=== PATIENT | male | born 1965 | race American Indian/Alaskan Native ===

== ENCOUNTER 2016-06-15 10:37 | Emergency (ER) | payer BC ==
[2016-06-15 11:45] VITALS: RESP 20
[2016-06-15 12:19] LABS: BASO # 0.1 K/uL (0.0-0.2); BASO % 0.6 % (0.0-2.0); EOS # 0.1 K/uL (0.0-0.7); EOS % 0.4 % (0.0-4.0); HEMATOCRIT 48.8 % (35.0-51.0); LYMPH # 1.4 K/uL (1.0-4.3); LYMPH % 9.7 % (20.0-40.0); MEAN CELL VOLUME 94.8 fL (80.0-94.0); MEAN CORPUSCULAR HEMOGLOBIN 32.2 pg (27.0-31.0); MEAN PLATELET VOLUME 8.4 fL (7.2-11.7); MONO # 1.9 K/uL (0.0-0.8); MONO % 13.6 % (0.0-10.0); PLATELET COUNT 274 K/uL (130-400); RED CELL DISTRIBUTION WIDTH 13.4 % (11.5-14.5); WHITE BLOOD COUNT 14.1 K/uL (4.8-10.8)
[2016-06-15 12:28] LABS: CHLORIDE 95 mmol/L (98-107); POTASSIUM 3.8 mmol/L (3.6-5.2); SODIUM 137 mmol/L (132-148)
[2016-06-15 12:30] LABS: GFR AFRICAN-AMERICAN > 60
[2016-06-15 12:31] LABS: ALB/GLOB RATIO 1.1 (1.0-2.1); ALKALINE PHOSPHATASE 57 U/L (38-126); ALT/SGPT 25 U/L (21-72); AST/SGOT 33 U/L (17-59); BILIRUBIN,TOTAL 3.3 mg/dL (0.2-1.3); BLOOD UREA NITROGEN 19 mg/dL (9-20); CALCIUM 9.5 mg/dl (8.6-10.4); CARBON DIOXIDE 31 mmol/L (22-30); GLUCOSE,RANDOM 109 mg/dL (75-110); TOTAL PROTEIN 8.3 g/dL (6.3-8.3); URIC ACID 10.5 mg/dL (3.5-8.5)
[2016-06-15 12:40] LABS: EOSINOPHIL 1 % (0-4); NEUTROPHIL 77 % (50-75); TOTAL CELLS COUNTED 100
[2016-06-15 13:07] VITALS: O2SAT 98
[2016-06-15] MEDS ORDERED: Morphine 4 MG/ML VIAL ONE (13:29)
--- NOTE | 2016-06-15 14:10 | C.PDOC ---
History Of Present Illness 50 y/o male presents to the ED with complaints of right foot pain, swelling, redness x2 days. Pt has hx gout, states he is not currently on any medications for it. Pt denies falls/injuries, fever, sensory changes. Patient has PMHx of HTN, but has no PMD and does not take any BP meds. Time Seen by Provider: 06/15/16 11:38 Chief Complaint (Nursing): Lower Extremity Problem/Injury History Per: Patient History/Exam Limitations: no limitations Onset/Duration Of Symptoms: Days Current Symptoms Are (Timing): Still Present Severity: Moderate Recent travel outside of the [place]: No Past Medical History Reviewed: Historical Data, Nursing Documentation, Vital Signs Vital Signs: Last Vital Signs Temp 99.1 F 06/15/16 15:00 Pulse 111 H 06/15/16 15:00 Resp 20 06/15/16 15:00 BP 181/112 H 06/15/16 15:00 Pulse Ox 98 06/15/16 15:00 - Medical History PMH: HTN Family History: States: No Known Family Hx - Social History Hx Tobacco Use: No Hx Alcohol Use: Yes Hx Substance Use: No Review Of Systems Except As Marked, All Systems Reviewed And Found Negative. Constitutional: Negative for: Fever, Chills Cardiovascular: Negative for: Chest Pain, Palpitations Respiratory: Negative for: Cough, Shortness of Breath Gastrointestinal: Negative for: Nausea, Vomiting, Abdominal Pain Musculoskeletal: Positive for: Other (right foot pain, swelling, redness) Neurological: Negative for: Weakness, Numbness, Altered Mental Status, Headache , Dizziness Physical Exam - Physical Exam Appears: Non-toxic, In Acute Distress (moderate pain) Skin: Warm, Dry, No Rash Head: Atraumatic, Normacephalic Eye(s): bilateral: Normal Inspection Oral Mucosa: Moist Cardiovascular: Rhythm Regular (tachycardic), No Murmur Respiratory: Normal Breath Sounds, No Rales, No Rhonchi, No Wheezing Gastrointestinal/Abdominal: Normal Exam, Bowel Sounds, Soft, No Tenderness, No Guarding, No Rebound Extremity: Normal ROM, No Calf Tenderness, Capillary Refill (< 2 sec all digits ), No Deformity, Swelling (Right foot with mild swelling, erythema with warmth at 1st MTP. No rashes, no fluctuance/induration) Pulses: Left Dorsalis Pedis: Normal, Right Dorsalis Pedis: Normal Neurological/Psych: Oriented x3, Normal Sensation ED Course And Treatment - Laboratory Results Result Diagrams: 06/15/16 12:11 06/15/16 12:11 O2 Sat by Pulse Oximetry: 98 (on room air) Pulse Ox Interpretation: Normal Progress Note: Plan: Blood work ordred and reviewed. Partient given IV toradol , PO colchicine and PO Norvasc. 15:00- On reassessment, patient states he is feeling much better. Vitals have improved significantly. Patient would like to be discharged home - explained to him that he needs to follow up in the medical clinic/internal medicine for further evaluation of his BP. Follow up info given, and patient also given Rxs for Colchicine, indomethacin and Norvasc. He understands he should return to ED immediately if symptoms worsen. Reevaluation Time: 13:15 Reassessment Condition: Improved (Patient reassessed, is still having significant pain - IV morphine ordered.) Disposition Counseled Patient/Family Regarding: Studies Performed, Diagnosis, Need For Followup, Rx Given - Disposition Referrals: Jade Montgomery MD [Staff Provider] - Disposition: HOME/ ROUTINE Disposition Time: 15:00 Condition: GOOD Additional Instructions: FOLLOW UP WITH DOCTOR IN 1 -2 DAYS USE MEDICATIONS DIRECTED RETURN TO ER IF SYMPTOMS WORSEN Prescriptions: Colchicine 0.6 mg PO DAILY #3 capsule Indomethacin [Indocin] 50 mg PO TID PRN #21 cap PRN Reason: pain amLODIPine [Norvasc] 5 mg PO DAILY #30 tab Instructions: Gout (ED), Hypertension (ED) Forms: Work Excuse Print Language: SERBIAN - POA Present On Arrival: None - Clinical Impression Clinical Impression: Gout, Hypertension - Scribe Statement The provider has reviewed the documentation as recorded by the Jazzy Haney Provider Attestation: All medical record entries made by the Jazzy were at my direction and personally dictated by me. I have reviewed the chart and agree that the record accurately reflects my personal performance of the history, physical exam, medical decision making, and the department course for this patient. I have also personally directed, reviewed, and agree with the discharge instructions and disposition.
[2016-06-15 15:03] VITALS: BP 181/112; PULSE 111; TEMP 99.1
--- NOTE | 2016-06-16 11:41 | CARD ---
APPROVED REPORT EKG Measurement Heart [id number] <Conclusion> Sinus tachycardia Possible Left atrial enlargement Left ventricular hypertrophy Septal infarct, age undetermined Abnormal ECG
== END 2016-06-15 15:11 | disposition home or self-care (01) ==
LOC: C.ER 10:37
DX: M10.9 Gout, unspecified (principal); I10 Essential (primary) hypertension
CPT/HCPCS: 80053; 84550; 85025; 93005; 96374; 96375; 99285; J1885; J2270